=== PATIENT | male | born 1950 | race Caucasian/White ===

== ENCOUNTER 2020-08-23 12:09 | Inpatient (IN) ==
[2020-08-23] MEDS ORDERED: Ipratropium/Albuterol Neb 3 ML IH ONE (12:16)
[2020-08-23] MEDS ORDERED: methylPREDNISolone 125 MG/2 ML VIAL IVP ONE (12:16)
[2020-08-23] MEDS ORDERED: Isovue-370 500 ML BOTTLE IVP ONE (12:22)
[2020-08-23 13:04] LABS: Prothrombin Time 11.1 Seconds (9.4-12.1)
[2020-08-23] MEDS ORDERED: 0.9 % Sodium Chloride 1,000 ML IVC ONE (14:19)
[2020-08-23 14:37] LABS: Basophils % 0.3 %; Eosinophils # 0.1 K/mcL (0.0-0.6); Eosinophils % 0.9 %; Hematocrit 37.9 % (37.5-50.1); Hemoglobin 12.2 g/dL (12.9-16.9); Immature Granulocytes % 0.6 % (0-4); Lymphocytes % 14.1 %; Mean Corpuscular HGB Conc 32.2 g/dL (31.6-35.5); Mean Corpuscular Hemoglobin 31.3 pg (28.0-33.3); Mean Corpuscular Volume 97.2 fL (83.0-100.0); Mean Platelet Volume 8.9 fL (9.4-12.4); Monocytes # 0.4 K/mcL (0.0-1.3); Monocytes % 6.1 %; Neutrophils # 5.5 K/mcL (1.6-8.9); Platelet Count 197 K/mcL (140-400); Red Cell Distribution Width 12.6 % (11.5-14.5)
[2020-08-23 15:10] LABS: Alanine Aminotransferase 16 Units/L (7-52); Alkaline Phosphatase 47 Units/L (34-104); Aspartate Amino Transferase 17 Units/L (13-39); BUN/Creatinine Ratio 29 (6-26); Bilirubin,Total 0.6 mg/dL (0.3-1.0); Blood Urea Nitrogen 12 mg/dL (8-23); Carbon Dioxide 30 mEq/L (23-29); Chloride 98 mEq/L (98-107); Glucose 93 mg/dL (70-105); Magnesium 1.6 mg/dL (1.6-2.6); Osmolality,Calculated 281 (280-300); Potassium 3.8 mEq/L (3.5-5.1); Sodium 136 mEq/L (136-145); Troponin I < 0.03 ng/mL (< 0.04); eGFR For African Americans > 60 (> 60); eGFR For Non-African Americans > 60 (> 60)
[2020-08-23] MEDS ORDERED: Naloxone 0.4 MG/ML INJ IVP PRN (17:57)
[2020-08-23] MEDS: Ipratropium/Albuterol Neb 3 ML IH PRN (19:44)
[2020-08-23] MEDS ORDERED: Albuterol 2.5 MG/3 ML NEBULIZER IH PRN (21:41)
[2020-08-23] MEDS: Azithromycin 500 MG in 0.9 % Sodium Chloride 250 ML IVPB SCH (22:15)
[2020-08-23] MEDS: *HR* OxyCODONE/APAP 10/325 TABLET PO PRN (22:16)
[2020-08-23] MEDS: Benzonatate 100 MG CAPSULE PO PRN (22:16)
[2020-08-23] MEDS: ALPRAZolam 0.25 MG TABLET PO SCH (22:20)
[2020-08-23] MEDS: Ipratropium/Albuterol Neb 3 ML IH SCH (22:21)
[2020-08-23] MEDS: Budesonide/Formoterol 160/4.5 1 PUFF INH IH SCH (22:21)
[2020-08-24] MEDS: Ipratropium/Albuterol Neb 3 ML IH SCH ×6 (03:39→22:41)
[2020-08-24 07:30] LABS: Basophils % 0.2 %; Hematocrit 33.1 % (37.5-50.1); Hemoglobin 10.8 g/dL (12.9-16.9); Immature Granulocytes % 0.8 % (0-4); Lymphocytes # 0.5 K/mcL (0.6-4.6); Mean Corpuscular HGB Conc 32.6 g/dL (31.6-35.5); Mean Corpuscular Hemoglobin 32.2 pg (28.0-33.3); Mean Corpuscular Volume 98.8 fL (83.0-100.0); Mean Platelet Volume 9.1 fL (9.4-12.4); Monocytes # 0.6 K/mcL (0.0-1.3); Monocytes % 8.3 %; Neutrophils # 5.5 K/mcL (1.6-8.9); Platelet Count 181 K/mcL (140-400); Red Blood Count 3.35 M/mcL (4.19-5.50); Red Cell Distribution Width 12.7 % (11.5-14.5); Segmented Neutrophils % 83.7 %; White Blood Count 6.6 K/mcL (4.3-11.1)
[2020-08-24 07:50] LABS: BUN/Creatinine Ratio 45 (6-26); Blood Urea Nitrogen 17 mg/dL (8-23); Calcium 8.5 mg/dL (8.6-10.3); Carbon Dioxide 30 mEq/L (23-29); Chloride 102 mEq/L (98-107); Glucose 127 mg/dL (70-105); Osmolality,Calculated 283 (280-300); Potassium 4.1 mEq/L (3.5-5.1); Sodium 135 mEq/L (136-145); eGFR For African Americans > 60 (> 60); eGFR For Non-African Americans > 60 (> 60)
[2020-08-24] MEDS: Loratadine 10 MG TABLET PO SCH (07:59)
[2020-08-24] MEDS: ALPRAZolam 0.25 MG TABLET PO SCH ×2 (07:59→21:34)
[2020-08-24] MEDS: lisinopriL 20 MG TABLET PO SCH (07:59)
[2020-08-24] MEDS: MethylPREDNISolone 40 MG/ML VIAL IVP SCH ×2 (08:00→17:47)
[2020-08-24] MEDS: *HR* Acetylcysteine 20% 600 MG/3 ML ORAL SYRINGE PO SCH (08:10)
[2020-08-24] MEDS ORDERED: NON-FORMULARY MEDICATION 1 EACH EACH (Levocetirizine Dihydrochloride [Allergy Relief (Xyza PO SCH (09:00)
[2020-08-24] MEDS: Budesonide/Formoterol 160/4.5 1 PUFF INH IH SCH ×2 (10:19→22:42)
[2020-08-24 12:33] LABS: % Iron Saturation 34 % (20-55); Iron 83 mcg/dL (65-175); Transferrin 173 mg/dL (203-362)
[2020-08-24 12:51] LABS: Ferritin 191 ng/mL (20-250)
[2020-08-24] MEDS: *HR* OxyCODONE/APAP 10/325 TABLET PO PRN ×2 (14:36→21:34)
[2020-08-24] MEDS: Benzonatate 100 MG CAPSULE PO PRN (14:36)
[2020-08-24] MEDS: Ipratropium/Albuterol Neb 3 ML IH PRN (15:25)
[2020-08-24] MEDS: Azithromycin 500 MG in 0.9 % Sodium Chloride 250 ML IVPB SCH (17:47)
[2020-08-25 02:51] LABS: Basophils % 0.1 %; Hematocrit 32.8 % (37.5-50.1); Hemoglobin 10.4 g/dL (12.9-16.9); Immature Granulocytes % 0.7 % (0-4); Lymphocytes # 0.3 K/mcL (0.6-4.6); Lymphocytes % 3.2 %; Mean Corpuscular HGB Conc 31.7 g/dL (31.6-35.5); Mean Corpuscular Hemoglobin 31.7 pg (28.0-33.3); Mean Platelet Volume 9.4 fL (9.4-12.4); Monocytes # 0.2 K/mcL (0.0-1.3); Monocytes % 2.3 %; Neutrophils # 8.2 K/mcL (1.6-8.9); Platelet Count 192 K/mcL (140-400); Red Blood Count 3.28 M/mcL (4.19-5.50); Segmented Neutrophils % 93.7 %; White Blood Count 8.7 K/mcL (4.3-11.1)
[2020-08-25 03:10] LABS: BUN/Creatinine Ratio 45 (6-26); Blood Urea Nitrogen 24 mg/dL (8-23); Calcium 8.6 mg/dL (8.6-10.3); Carbon Dioxide 29 mEq/L (23-29); Chloride 101 mEq/L (98-107); Glucose 139 mg/dL (70-105); Osmolality,Calculated 284 (280-300); Sodium 134 mEq/L (136-145); eGFR For African Americans > 60 (> 60); eGFR For Non-African Americans > 60 (> 60)
[2020-08-25] MEDS: Ipratropium/Albuterol Neb 3 ML IH SCH ×4 (03:38→20:54)
[2020-08-25] MEDS: MethylPREDNISolone 40 MG/ML VIAL IVP SCH ×2 (05:29→17:02)
[2020-08-25] MEDS: Loratadine 10 MG TABLET PO SCH (07:45)
[2020-08-25] MEDS: ALPRAZolam 0.25 MG TABLET PO SCH ×2 (07:45→21:28)
[2020-08-25] MEDS: *HR* OxyCODONE/APAP 10/325 TABLET PO PRN ×3 (07:45→21:29)
[2020-08-25] MEDS: lisinopriL 20 MG TABLET PO SCH (07:46)
[2020-08-25] MEDS: *HR* Acetylcysteine 20% 600 MG/3 ML ORAL SYRINGE PO SCH (09:43)
[2020-08-25] MEDS: Budesonide/Formoterol 160/4.5 1 PUFF INH IH SCH ×2 (10:55→20:54)
[2020-08-25] MEDS ORDERED: Isovue-370 500 ML BOTTLE IVP ONE (11:10)
[2020-08-25] MEDS: Azithromycin 500 MG in 0.9 % Sodium Chloride 250 ML IVPB SCH (17:02)
[2020-08-26] MEDS: Ipratropium/Albuterol Neb 3 ML IH SCH ×4 (03:49→21:36)
[2020-08-26 04:04] LABS: Basophils % 0.1 %; Hematocrit 33.7 % (37.5-50.1); Hemoglobin 10.6 g/dL (12.9-16.9); Immature Granulocytes % 0.8 % (0-4); Lymphocytes # 0.4 K/mcL (0.6-4.6); Lymphocytes % 5.1 %; Mean Corpuscular HGB Conc 31.5 g/dL (31.6-35.5); Mean Corpuscular Hemoglobin 31.3 pg (28.0-33.3); Mean Corpuscular Volume 99.4 fL (83.0-100.0); Monocytes # 0.3 K/mcL (0.0-1.3); Monocytes % 4.1 %; Platelet Count 185 K/mcL (140-400); Red Blood Count 3.39 M/mcL (4.19-5.50); Red Cell Distribution Width 12.9 % (11.5-14.5); Segmented Neutrophils % 89.9 %; White Blood Count 7.8 K/mcL (4.3-11.1)
[2020-08-26 04:28] LABS: BUN/Creatinine Ratio 53 (6-26); Blood Urea Nitrogen 26 mg/dL (8-23); Calcium 8.4 mg/dL (8.6-10.3); Carbon Dioxide 28 mEq/L (23-29); Chloride 104 mEq/L (98-107); Glucose 119 mg/dL (70-105); Osmolality,Calculated 288 (280-300); Potassium 4.5 mEq/L (3.5-5.1); Sodium 136 mEq/L (136-145); eGFR For African Americans > 60 (> 60); eGFR For Non-African Americans > 60 (> 60)
[2020-08-26] MEDS: MethylPREDNISolone 40 MG/ML VIAL IVP SCH (05:32)
[2020-08-26] MEDS: *HR* OxyCODONE/APAP 10/325 TABLET PO PRN ×2 (09:07→16:20)
[2020-08-26] MEDS: lisinopriL 20 MG TABLET PO SCH (09:07)
[2020-08-26] MEDS: Loratadine 10 MG TABLET PO SCH (09:07)
[2020-08-26] MEDS: ALPRAZolam 0.25 MG TABLET PO SCH ×2 (09:08→20:07)
[2020-08-26] MEDS: *HR* Acetylcysteine 20% 600 MG/3 ML ORAL SYRINGE PO SCH (09:54)
[2020-08-26] MEDS: Budesonide/Formoterol 160/4.5 1 PUFF INH IH SCH ×2 (10:25→21:37)
[2020-08-26] MEDS ORDERED: Lidocaine -MPF 2% 2 ML VIAL ONE (13:20)
[2020-08-26] MEDS: Azithromycin 500 MG in 0.9 % Sodium Chloride 250 ML IVPB SCH (18:26)
[2020-08-27] MEDS: Ipratropium/Albuterol Neb 3 ML IH SCH ×4 (03:36→22:08)
[2020-08-27 04:35] LABS: Eosinophils % 0.2 %; Hematocrit 34.5 % (37.5-50.1); Hemoglobin 10.8 g/dL (12.9-16.9); Immature Granulocytes % 0.7 % (0-4); Lymphocytes % 16.2 %; Mean Corpuscular HGB Conc 31.3 g/dL (31.6-35.5); Mean Corpuscular Hemoglobin 31.3 pg (28.0-33.3); Mean Platelet Volume 9.2 fL (9.4-12.4); Monocytes # 0.4 K/mcL (0.0-1.3); Monocytes % 7.4 %; Neutrophils # 4.5 K/mcL (1.6-8.9); Platelet Count 183 K/mcL (140-400); Red Blood Count 3.45 M/mcL (4.19-5.50); Red Cell Distribution Width 12.8 % (11.5-14.5); Segmented Neutrophils % 75.5 %
[2020-08-27 04:52] LABS: BUN/Creatinine Ratio 37 (6-26); Blood Urea Nitrogen 26 mg/dL (8-23); Calcium 8.5 mg/dL (8.6-10.3); Carbon Dioxide 28 mEq/L (23-29); Chloride 104 mEq/L (98-107); Glucose 121 mg/dL (70-105); Osmolality,Calculated 290 (280-300); Potassium 3.9 mEq/L (3.5-5.1); Sodium 137 mEq/L (136-145); eGFR For African Americans > 60 (> 60); eGFR For Non-African Americans > 60 (> 60)
[2020-08-27] MEDS: Loratadine 10 MG TABLET PO SCH (08:34)
[2020-08-27] MEDS: *HR* Acetylcysteine 20% 600 MG/3 ML ORAL SYRINGE PO SCH (08:34)
[2020-08-27] MEDS: predniSONE 20 MG TABLET PO SCH (08:35)
[2020-08-27] MEDS: ALPRAZolam 0.25 MG TABLET PO SCH ×2 (08:36→20:09)
[2020-08-27] MEDS: lisinopriL 20 MG TABLET PO SCH (08:36)
[2020-08-27] MEDS: *HR* OxyCODONE/APAP 10/325 TABLET PO PRN ×2 (09:07→20:12)
[2020-08-27] MEDS: Budesonide/Formoterol 160/4.5 1 PUFF INH IH SCH ×2 (09:45→22:08)
[2020-08-27] MEDS: Azithromycin 500 MG in 0.9 % Sodium Chloride 250 ML IVPB SCH (17:40)
[2020-08-28] MEDS: Ipratropium/Albuterol Neb 3 ML IH SCH ×4 (03:57→22:42)
[2020-08-28] MEDS: *HR* Acetylcysteine 20% 600 MG/3 ML ORAL SYRINGE PO SCH (07:33)
[2020-08-28] MEDS: Loratadine 10 MG TABLET PO SCH (07:34)
[2020-08-28] MEDS: predniSONE 20 MG TABLET PO SCH (07:36)
[2020-08-28] MEDS: ALPRAZolam 0.25 MG TABLET PO SCH (07:37)
[2020-08-28] MEDS: lisinopriL 20 MG TABLET PO SCH (07:37)
[2020-08-28] MEDS: *HR* OxyCODONE/APAP 10/325 TABLET PO PRN (08:03)
[2020-08-28] MEDS ORDERED: *HR* LORazepam 2 MG/ML VIAL IVP PRN ×3 (08:45)
[2020-08-28] MEDS: Budesonide/Formoterol 160/4.5 1 PUFF INH IH SCH ×2 (09:37→22:42)
[2020-08-28] MEDS: Folic Acid 1 MG TABLET PO SCH (10:47)
[2020-08-28] MEDS: Thiamine (B-1) 100 MG TABLET PO SCH (10:47)
[2020-08-28 11:05] LABS: Folate 7.4 ng/mL (3.0-16.0)
[2020-08-28] MEDS ORDERED: E-Z-HD (BARIUM SULF) SUSPENSION PO ONE (13:06)
[2020-08-28] MEDS ORDERED: Barium Sulfate 1 TAB TABLET PO ONE (13:06)
[2020-08-28] MEDS ORDERED: E-Z-PAQUE (BARIUM SULF) SUSP 1 BOTTLE PO ONE (13:06)
[2020-08-29 02:56] LABS: Mean Corpuscular HGB Conc 32.4 g/dL (31.6-35.5); Mean Corpuscular Hemoglobin 31.7 pg (28.0-33.3); Mean Platelet Volume 8.9 fL (9.4-12.4); Platelet Count 191 K/mcL (140-400); Red Blood Count 3.47 M/mcL (4.19-5.50); Red Cell Distribution Width 12.8 % (11.5-14.5)
[2020-08-29 03:15] LABS: BUN/Creatinine Ratio 66 (6-26); Blood Urea Nitrogen 27 mg/dL (8-23); Carbon Dioxide 32 mEq/L (23-29); Chloride 104 mEq/L (98-107); Glucose 124 mg/dL (70-105); Potassium 4.1 mEq/L (3.5-5.1); Sodium 138 mEq/L (136-145); eGFR For African Americans > 60 (> 60); eGFR For Non-African Americans > 60 (> 60)
[2020-08-29 03:16] LABS: Calcium 8.5 mg/dL (8.6-10.3); Osmolality,Calculated 293 (280-300)
[2020-08-29] MEDS: Ipratropium/Albuterol Neb 3 ML IH SCH ×2 (03:37→09:53)
[2020-08-29 03:51] VITALS: BP 128/72
[2020-08-29] MEDS: Loratadine 10 MG TABLET PO SCH (07:56)
[2020-08-29] MEDS: Thiamine (B-1) 100 MG TABLET PO SCH (07:56)
[2020-08-29] MEDS: Folic Acid 1 MG TABLET PO SCH (07:56)
[2020-08-29] MEDS: lisinopriL 20 MG TABLET PO SCH (07:57)
[2020-08-29] MEDS: *HR* OxyCODONE/APAP 10/325 TABLET PO PRN (08:02)
[2020-08-29] MEDS ORDERED: predniSONE 20 MG TABLET PO SCH (09:00)
[2020-08-29] MEDS: Budesonide/Formoterol 160/4.5 1 PUFF INH IH SCH (09:53)
== END 2020-08-29 11:03 | disposition home health service (06) | DRG 190 ==
LOC: EMEROOARM 12:09 → 3BNU 12:09
PROVIDERS: ADMIT Student in an Organized Health Care Education/Training Program; ATTEND Student in an Organized Health Care Education/Training Program
PROC: ENDOEBX (2020-08-26 13:55)

== ENCOUNTER 2021-11-28 10:19 | Inpatient (IN) ==
[2021-11-28] MEDS ORDERED: Ipratropium/Albuterol Neb 3 ML IH ONE (10:43)
[2021-11-28] MEDS ORDERED: methylPREDNISolone 125 MG/2 ML VIAL IVP ONE (10:43)
[2021-11-28] MEDS ORDERED: 0.9 % Sodium Chloride 500 ML IVC ONE ×2 (10:49→22:42)
[2021-11-28 11:16] LABS: Basophils # 0.1 K/mcL (0.0-0.2); Basophils % 0.8 %; Eosinophils # 0.2 K/mcL (0.0-0.6); Eosinophils % 2.7 %; Hematocrit 37.6 % (37.5-50.1); Hemoglobin 12.4 g/dL (12.9-16.9); Immature Granulocytes % 1.1 % (0-4); Lymphocytes # 1.3 K/mcL (0.6-4.6); Lymphocytes % 20.6 %; Mean Corpuscular Hemoglobin 31.2 pg (28.0-33.3); Mean Corpuscular Volume 94.5 fL (83.0-100.0); Mean Platelet Volume 8.1 fL (9.4-12.4); Monocytes # 0.6 K/mcL (0.0-1.3); Monocytes % 9.3 %; Neutrophils # 4.1 K/mcL (1.6-8.9); Platelet Count 344 K/mcL (140-400); Red Blood Count 3.98 M/mcL (4.19-5.50); Red Cell Distribution Width 11.9 % (11.5-14.5); Segmented Neutrophils % 65.5 %; White Blood Count 6.3 K/mcL (4.3-11.1)
[2021-11-28 11:38] LABS: BUN/Creatinine Ratio 19 (6-26); Blood Urea Nitrogen 18 mg/dL (8-23); Calcium 9.2 mg/dL (8.6-10.3); Carbon Dioxide 28 mEq/L (23-29); Chloride 92 mEq/L (98-107); Glucose 96 mg/dL (70-105); Osmolality,Calculated 270 (280-300); Potassium 4.8 mEq/L (3.5-5.1); Sodium 129 mEq/L (136-145); eGFR For African Americans > 60 (> 60); eGFR For Non-African Americans > 60 (> 60)
[2021-11-28 11:45] LABS: Troponin I 0.15 ng/mL (< 0.04)
[2021-11-28] MEDS ORDERED: Naloxone 0.4 MG/ML INJ IVP PRN (13:14)
[2021-11-28] MEDS ORDERED: Perflutren Lipid Microsphere 1.3 ML in 0.9 % Sodium Chloride 8.7 ML IVP PRN (13:17)
[2021-11-28] MEDS ORDERED: Aspirin 325 MG TABLET PO ONE (13:18)
[2021-11-28 13:42] LABS: Cholesterol 139 mg/dL (< 200); HDL Cholesterol 46 mg/dL (40-59); LDL Cholesterol,Calculated 72 mg/dL (< 100); Triglycerides 107 mg/dL (< 150)
[2021-11-28 13:52] LABS: Estimated Average Glucose 100 mg/dl; Hemoglobin A1C 5.1 %
[2021-11-28 14:18] LABS: Bilirubin,Urine Negative (Negative); Blood,Urine Negative (Negative); Clarity,Urine Clear (Clear); Color,Urine Yellow (Yellow); Glucose,Urine (UA) Normal (Normal); Ketones,Urine 10 mg/dL (Negative); Leukocyte Esterase,Urine Negative (Negative); Nitrite,Urine Negative (Negative); PH,Urine 6.5 pH Units (5.0-8.0); Protein,Urine Trace mg/dL (Neg-Trace); Specific Gravity,Urine 1.019 (1.010-1.025)
[2021-11-28 14:36] LABS: Alanine Aminotransferase 14 Units/L (7-52); Albumin 3.7 g/dL (3.5-5.7); Albumin/Globulin Ratio 1.5 (1.1-2.2); Alkaline Phosphatase 54 Units/L (34-104); Aspartate Amino Transferase 27 Units/L (13-39); Bilirubin,Direct 0.1 mg/dL (0.0-0.2); Bilirubin,Indirect 0.4 mg/dL (0.0-1.0); Bilirubin,Total 0.5 mg/dL (0.3-1.0); Globulin 2.4 g/dL (2.4-3.5); Total Protein 6.1 g/dL (6.4-8.9)
[2021-11-28] MEDS: Benzonatate 100 MG CAPSULE PO SCH ×2 (15:24→20:12)
[2021-11-28] MEDS: Ipratropium/Albuterol Neb 3 ML IH PRN ×2 (15:25→19:54)
[2021-11-28 16:39] LABS: Adenovirus Not Detected (Not Detect); Bordetella Pertussis Not Detected (Not Detect); Chlamydophila pneumoniae Not Detected (Not Detect); Coronavirus 229E Not Detected (Not Detect); Coronavirus HKU1 Not Detected (Not Detect); Coronavirus NL63 Not Detected (Not Detect); Coronavirus OC43 Not Detected (Not Detect); Human Metapneumovirus Not Detected (Not Detect); Human Rhinovirus/Enterovirus Not Detected (Not Detect); Influenza A Subtype 2009 H1 Not Detected (Not Detect); Influenza B Not Detected (Not Detect); Mycoplasma pneumoniae Not Detected (Not Detect); Parainfluenza Virus 1 Not Detected (Not Detect); Parainfluenza Virus 2 Not Detected (Not Detect); Parainfluenza Virus 3 Not Detected (Not Detect); Parainfluenza Virus 4 Not Detected (Not Detect); Respiratory Syncytial Virus Not Detected (Not Detect); SARS-CoV-2 Not Detected (Not Detect)
[2021-11-28 17:20] LABS: BUN/Creatinine Ratio 23 (6-26); Blood Urea Nitrogen 22 mg/dL (8-23); Calcium 8.5 mg/dL (8.6-10.3); Carbon Dioxide 26 mEq/L (23-29); Chloride 94 mEq/L (98-107); Glucose 186 mg/dL (70-105); Osmolality,Calculated 272 (280-300); Potassium 4.7 mEq/L (3.5-5.1); Sodium 127 mEq/L (136-145); Thyroid Stimulating Hormone 0.132 mcIU/mL (0.340-5.600); Troponin I 0.11 ng/mL (< 0.04); eGFR For African Americans > 60 (> 60); eGFR For Non-African Americans > 60 (> 60)
[2021-11-28 17:25] LABS: Ferritin 282 ng/mL (20-250)
[2021-11-28 17:27] LABS: Folate 9.5 ng/mL (3.0-16.0)
[2021-11-28] MEDS: *HR* Heparin 5,000 UNIT/ML VIAL SQ SCH (17:37)
[2021-11-28] MEDS: Budesonide/Formoterol 160/4.5 1 PUFF INH IH SCH (19:54)
[2021-11-28] MEDS ORDERED: Albumin 25% 25gram/100mL 25 GM/100 ML IV.SOLN IVPB ONE (20:21)
[2021-11-29 01:32] LABS: BUN/Creatinine Ratio 31 (6-26); Blood Urea Nitrogen 28 mg/dL (8-23); Calcium 8.2 mg/dL (8.6-10.3); Carbon Dioxide 25 mEq/L (23-29); Chloride 97 mEq/L (98-107); Glucose 189 mg/dL (70-105); Osmolality,Calculated 277 (280-300); Potassium 4.4 mEq/L (3.5-5.1); Sodium 128 mEq/L (136-145); eGFR For African Americans > 60 (> 60); eGFR For Non-African Americans > 60 (> 60)
[2021-11-29 01:54] LABS: Alanine Aminotransferase 12 Units/L (7-52); Albumin 3.5 g/dL (3.5-5.7); Albumin/Globulin Ratio 2.1 (1.1-2.2); Alkaline Phosphatase 41 Units/L (34-104); Aspartate Amino Transferase 19 Units/L (13-39); Bilirubin,Total 0.3 mg/dL (0.3-1.0); Globulin 1.7 g/dL (2.4-3.5); Magnesium 1.6 mg/dL (1.6-2.6); Phosphorous 2.2 mg/dL (2.7-4.5); Total Protein 5.2 g/dL (6.4-8.9)
[2021-11-29] MEDS: Ipratropium/Albuterol Neb 3 ML IH PRN (03:58)
[2021-11-29] MEDS: *HR* OxyCODONE/APAP 10/325 TABLET PO PRN ×2 (04:55→14:42)
[2021-11-29] MEDS: *HR* Heparin 5,000 UNIT/ML VIAL SQ SCH ×2 (04:56→17:29)
[2021-11-29] MEDS: Tiotropium 10 INH DOSE IH SCH (07:39)
[2021-11-29] MEDS: Budesonide/Formoterol 160/4.5 1 PUFF INH IH SCH ×2 (07:39→19:43)
[2021-11-29] MEDS ORDERED: NON-FORMULARY MEDICATION 1 EACH EACH (Amlodipine Besylate 10 MG Tablet) PO SCH (09:00)
[2021-11-29] MEDS: lisinopriL 20 MG TABLET PO SCH (09:50)
[2021-11-29] MEDS: Benzonatate 100 MG CAPSULE PO SCH ×3 (09:50→19:46)
[2021-11-29] MEDS: Aspirin 81 MG TAB.CHEW PO SCH (09:50)
[2021-11-29] MEDS: amLODIPine 5 MG TABLET PO SCH (09:50)
[2021-11-29] MEDS: Gabapentin 300 MG CAPSULE PO SCH (09:51)
[2021-11-29] MEDS: Nicotine 21 MG PATCH.TD24 TD SCH (10:30)
[2021-11-29] MEDS: Fluticasone Propionate Nasal 50 MCG/SPRAY BOTTLE NS SCH (10:31)
[2021-11-29] MEDS: Ipratropium/Albuterol Neb 3 ML IH SCH ×4 (11:16→23:12)
[2021-11-29] MEDS: predniSONE 20 MG TABLET PO SCH (13:02)
[2021-11-30] MEDS ORDERED: Albumin 25% 25gram/100mL 25 GM/100 ML IV.SOLN IVPB ONE (01:27)
[2021-11-30] MEDS: Ipratropium/Albuterol Neb 3 ML IH SCH ×6 (04:04→23:27)
[2021-11-30] MEDS: *HR* Heparin 5,000 UNIT/ML VIAL SQ SCH (05:54)
[2021-11-30 05:56] LABS: Hematocrit 28.6 % (37.5-50.1); Mean Corpuscular HGB Conc 32.5 g/dL (31.6-35.5); Mean Corpuscular Hemoglobin 30.9 pg (28.0-33.3); Mean Platelet Volume 8.5 fL (9.4-12.4); Platelet Count 280 K/mcL (140-400); Red Blood Count 3.01 M/mcL (4.19-5.50); Red Cell Distribution Width 12.2 % (11.5-14.5); White Blood Count 6.1 K/mcL (4.3-11.1)
[2021-11-30 05:57] LABS: Hemoglobin 9.3 g/dL (12.9-16.9)
[2021-11-30 06:06] LABS: Alanine Aminotransferase 11 Units/L (7-52); Albumin 3.9 g/dL (3.5-5.7); Albumin/Globulin Ratio 2.4 (1.1-2.2); Alkaline Phosphatase 37 Units/L (34-104); Aspartate Amino Transferase 16 Units/L (13-39); BUN/Creatinine Ratio 40 (6-26); Bilirubin,Total 0.2 mg/dL (0.3-1.0); Blood Urea Nitrogen 32 mg/dL (8-23); Calcium 8.5 mg/dL (8.6-10.3); Carbon Dioxide 27 mEq/L (23-29); Chloride 98 mEq/L (98-107); Globulin 1.6 g/dL (2.4-3.5); Glucose 110 mg/dL (70-105); Osmolality,Calculated 282 (280-300); Potassium 4.6 mEq/L (3.5-5.1); Sodium 132 mEq/L (136-145); Total Protein 5.5 g/dL (6.4-8.9); eGFR For African Americans > 60 (> 60); eGFR For Non-African Americans > 60 (> 60)
[2021-11-30] MEDS ORDERED: Regadenoson 0.4 MG/5 ML SYRINGE IVP ONE (07:15)
[2021-11-30] MEDS: Budesonide/Formoterol 160/4.5 1 PUFF INH IH SCH ×2 (07:59→20:26)
[2021-11-30] MEDS: Tiotropium 10 INH DOSE IH SCH (08:05)
[2021-11-30 08:18] LABS: Hematocrit 27.6 % (37.5-50.1); Hemoglobin 9.4 g/dL (12.9-16.9)
[2021-11-30] MEDS: lisinopriL 20 MG TABLET PO SCH (09:16)
[2021-11-30] MEDS: Aspirin 81 MG TAB.CHEW PO SCH (09:16)
[2021-11-30] MEDS: Gabapentin 300 MG CAPSULE PO SCH (09:16)
[2021-11-30] MEDS: predniSONE 20 MG TABLET PO SCH (09:17)
[2021-11-30] MEDS: Benzonatate 100 MG CAPSULE PO SCH ×3 (09:17→21:26)
[2021-11-30] MEDS: amLODIPine 5 MG TABLET PO SCH (09:17)
[2021-11-30] MEDS: Fluticasone Propionate Nasal 50 MCG/SPRAY BOTTLE NS SCH (12:21)
[2021-11-30 14:54] LABS: % Iron Saturation 53 % (20-55); Iron 115 mcg/dL (65-175); Transferrin 156 mg/dL (203-362)
[2021-11-30] MEDS: Nicotine 21 MG PATCH.TD24 TD SCH (15:10)
[2021-11-30] MEDS ORDERED: 0.9 % Sodium Chloride 500 ML IVC ONE (16:53)
[2021-11-30] MEDS: Pantoprazole 40 MG VIAL IVP SCH (17:00)
[2021-12-01 00:38] LABS: Hematocrit 28.6 % (37.5-50.1); Hemoglobin 9.2 g/dL (12.9-16.9); Mean Corpuscular HGB Conc 32.2 g/dL (31.6-35.5); Mean Corpuscular Hemoglobin 30.8 pg (28.0-33.3); Mean Corpuscular Volume 95.7 fL (83.0-100.0); Mean Platelet Volume 8.3 fL (9.4-12.4); Platelet Count 295 K/mcL (140-400); Red Blood Count 2.99 M/mcL (4.19-5.50); Red Cell Distribution Width 12.4 % (11.5-14.5); White Blood Count 6.9 K/mcL (4.3-11.1)
[2021-12-01 00:56] LABS: BUN/Creatinine Ratio 47 (6-26); Blood Urea Nitrogen 37 mg/dL (8-23); Calcium 8.3 mg/dL (8.6-10.3); Carbon Dioxide 28 mEq/L (23-29); Chloride 102 mEq/L (98-107); Glucose 109 mg/dL (70-105); Osmolality,Calculated 287 (280-300); Potassium 4.5 mEq/L (3.5-5.1); Sodium 134 mEq/L (136-145); eGFR For African Americans > 60 (> 60); eGFR For Non-African Americans > 60 (> 60)
[2021-12-01] MEDS ORDERED: Albumin 25% 25gram/100mL 25 GM/100 ML IV.SOLN IVPB ONE (01:00)
[2021-12-01] MEDS: Ipratropium/Albuterol Neb 3 ML IH SCH ×6 (03:47→23:03)
[2021-12-01] MEDS: Pantoprazole 40 MG VIAL IVP SCH (05:15)
[2021-12-01] MEDS: Tiotropium 10 INH DOSE IH SCH (07:55)
[2021-12-01] MEDS: Budesonide/Formoterol 160/4.5 1 PUFF INH IH SCH ×2 (07:55→19:41)
[2021-12-01] MEDS: predniSONE 20 MG TABLET PO SCH (08:07)
[2021-12-01] MEDS: Aspirin 81 MG TAB.CHEW PO SCH (08:07)
[2021-12-01] MEDS: Fluticasone Propionate Nasal 50 MCG/SPRAY BOTTLE NS SCH ×2 (08:08→20:00)
[2021-12-01] MEDS: Benzonatate 100 MG CAPSULE PO SCH (08:08)
[2021-12-01] MEDS: Gabapentin 300 MG CAPSULE PO SCH (08:08)
[2021-12-01] MEDS: Nicotine 21 MG PATCH.TD24 TD SCH (08:09)
[2021-12-01] MEDS: *HR* OxyCODONE/APAP 10/325 TABLET PO PRN ×2 (12:05→20:05)
[2021-12-01] MEDS ORDERED: Benzonatate 100 MG CAPSULE PO PRN (13:29)
[2021-12-01 14:32] LABS: Hematocrit 29.5 % (37.5-50.1); Hemoglobin 9.9 g/dL (12.9-16.9)
[2021-12-01] MEDS: Pantoprazole 40 MG in 0.9 % Sodium Chloride Mini Bag 100 ML IVC SCH ×2 (15:56→20:05)
[2021-12-02] MEDS: Pantoprazole 40 MG in 0.9 % Sodium Chloride Mini Bag 100 ML IVC SCH ×4 (01:22→18:30)
[2021-12-02 01:47] LABS: Basophils % 0.2 %; Hematocrit 29.1 % (37.5-50.1); Hemoglobin 9.2 g/dL (12.9-16.9); Immature Granulocytes % 0.5 % (0-4); Lymphocytes # 0.8 K/mcL (0.6-4.6); Lymphocytes % 13.7 %; Mean Corpuscular HGB Conc 31.6 g/dL (31.6-35.5); Mean Corpuscular Hemoglobin 31.3 pg (28.0-33.3); Mean Platelet Volume 8.7 fL (9.4-12.4); Monocytes # 0.4 K/mcL (0.0-1.3); Monocytes % 7.6 %; Neutrophils # 4.5 K/mcL (1.6-8.9); Platelet Count 285 K/mcL (140-400); Red Blood Count 2.94 M/mcL (4.19-5.50); Red Cell Distribution Width 12.7 % (11.5-14.5); White Blood Count 5.8 K/mcL (4.3-11.1)
[2021-12-02 02:29] LABS: BUN/Creatinine Ratio 40 (6-26); Blood Urea Nitrogen 19 mg/dL (8-23); Calcium 7.9 mg/dL (8.6-10.3); Carbon Dioxide 23 mEq/L (23-29); Chloride 116 mEq/L (98-107); Glucose 89 mg/dL (70-105); Osmolality,Calculated 302 (280-300); Potassium 3.7 mEq/L (3.5-5.1); Sodium 145 mEq/L (136-145); eGFR For African Americans > 60 (> 60); eGFR For Non-African Americans > 60 (> 60)
[2021-12-02] MEDS: Ipratropium/Albuterol Neb 3 ML IH SCH ×6 (03:46→23:41)
[2021-12-02] MEDS ORDERED: Acetaminophen IV 500 MG/50 ML BAG IVPB ONE (05:40)
[2021-12-02] MEDS: Budesonide/Formoterol 160/4.5 1 PUFF INH IH SCH ×2 (07:25→19:55)
[2021-12-02] MEDS: Gabapentin 300 MG CAPSULE PO SCH (09:41)
[2021-12-02] MEDS: Nicotine 21 MG PATCH.TD24 TD SCH (09:41)
[2021-12-02] MEDS: predniSONE 20 MG TABLET PO SCH (09:41)
[2021-12-02] MEDS: Aspirin 81 MG TAB.CHEW PO SCH (09:41)
[2021-12-02] MEDS: Fluticasone Propionate Nasal 50 MCG/SPRAY BOTTLE NS SCH ×2 (09:42→19:54)
[2021-12-02] MEDS ORDERED: *HR* Propofol 500 MG/50 ML BOTTLE IVP ONE (11:52)
[2021-12-02] MEDS ORDERED: Lidocaine -MPF 2% 5 ML VIAL SQ ONE (11:52)
[2021-12-02] MEDS: *HR* OxyCODONE/APAP 10/325 TABLET PO PRN (19:53)
[2021-12-02] MEDS: Albuterol 2.5 MG/3 ML NEBULIZER IH PRN (21:22)
[2021-12-03] MEDS: Pantoprazole 40 MG in 0.9 % Sodium Chloride Mini Bag 100 ML IVC SCH ×6 (00:07→21:37)
[2021-12-03 03:02] LABS: Eosinophils % 0.3 %; Hematocrit 28.1 % (37.5-50.1); Hemoglobin 9.2 g/dL (12.9-16.9); Immature Granulocytes % 0.5 % (0-4); Lymphocytes # 1.1 K/mcL (0.6-4.6); Lymphocytes % 9.1 %; Mean Corpuscular HGB Conc 32.7 g/dL (31.6-35.5); Mean Corpuscular Hemoglobin 32.3 pg (28.0-33.3); Mean Corpuscular Volume 98.6 fL (83.0-100.0); Mean Platelet Volume 8.5 fL (9.4-12.4); Monocytes # 0.6 K/mcL (0.0-1.3); Monocytes % 5.5 %; Neutrophils # 9.8 K/mcL (1.6-8.9); Platelet Count 296 K/mcL (140-400); Red Blood Count 2.85 M/mcL (4.19-5.50); Red Cell Distribution Width 12.9 % (11.5-14.5); Segmented Neutrophils % 84.6 %
[2021-12-03 03:04] LABS: White Blood Count 11.6 K/mcL (4.3-11.1)
[2021-12-03 03:24] LABS: BUN/Creatinine Ratio 40 (6-26); Blood Urea Nitrogen 21 mg/dL (8-23); Calcium 8.1 mg/dL (8.6-10.3); Carbon Dioxide 28 mEq/L (23-29); Chloride 108 mEq/L (98-107); Glucose 99 mg/dL (70-105); Osmolality,Calculated 295 (280-300); Potassium 3.8 mEq/L (3.5-5.1); Sodium 141 mEq/L (136-145); eGFR For African Americans > 60 (> 60); eGFR For Non-African Americans > 60 (> 60)
[2021-12-03] MEDS: Ipratropium/Albuterol Neb 3 ML IH SCH ×6 (03:53→23:39)
[2021-12-03] MEDS: Nicotine 21 MG PATCH.TD24 TD SCH (04:53)
[2021-12-03] MEDS: Budesonide/Formoterol 160/4.5 1 PUFF INH IH SCH ×2 (07:30→20:09)
[2021-12-03] MEDS ORDERED: Chloraseptic Spray 177 ML BOTTLE MM PRN (08:38)
[2021-12-03] MEDS: Gabapentin 300 MG CAPSULE PO SCH (08:41)
[2021-12-03] MEDS: Aspirin 81 MG TAB.CHEW PO SCH (08:41)
[2021-12-03] MEDS: Fluticasone Propionate Nasal 50 MCG/SPRAY BOTTLE NS SCH (08:42)
[2021-12-03] MEDS: predniSONE 20 MG TABLET PO SCH (08:43)
[2021-12-03] MEDS ORDERED: Simethicone/Sodium Bic/Citr Ac 1 EACH GRAN.EF.PK PO ONE (09:56)
[2021-12-03] MEDS ORDERED: E-Z-HD (BARIUM SULF) SUSPENSION PO ONE ×2 (09:56→12:38)
[2021-12-03] MEDS ORDERED: E-Z-PAQUE (BARIUM SULF) SUSP 1 BOTTLE PO ONE ×2 (09:56→12:38)
[2021-12-03] MEDS: *HR* OxyCODONE/APAP 10/325 TABLET PO PRN ×2 (11:15→21:21)
[2021-12-04 03:26] LABS: Basophils % 0.1 %; Eosinophils # 0.1 K/mcL (0.0-0.6); Eosinophils % 0.6 %; Hematocrit 28.7 % (37.5-50.1); Hemoglobin 9.3 g/dL (12.9-16.9); Immature Granulocytes % 0.3 % (0-4); Lymphocytes # 1.1 K/mcL (0.6-4.6); Lymphocytes % 11.9 %; Mean Corpuscular HGB Conc 32.4 g/dL (31.6-35.5); Mean Corpuscular Hemoglobin 31.6 pg (28.0-33.3); Mean Corpuscular Volume 97.6 fL (83.0-100.0); Mean Platelet Volume 8.5 fL (9.4-12.4); Monocytes # 0.6 K/mcL (0.0-1.3); Monocytes % 6.6 %; Neutrophils # 7.3 K/mcL (1.6-8.9); Platelet Count 292 K/mcL (140-400); Red Blood Count 2.94 M/mcL (4.19-5.50); Red Cell Distribution Width 12.5 % (11.5-14.5); Segmented Neutrophils % 80.5 %; White Blood Count 9.1 K/mcL (4.3-11.1)
[2021-12-04] MEDS: Ipratropium/Albuterol Neb 3 ML IH SCH ×3 (03:49→11:11)
[2021-12-04 03:54] LABS: BUN/Creatinine Ratio 34 (6-26); Blood Urea Nitrogen 16 mg/dL (8-23); Calcium 8.1 mg/dL (8.6-10.3); Carbon Dioxide 31 mEq/L (23-29); Chloride 103 mEq/L (98-107); Glucose 99 mg/dL (70-105); Magnesium 1.2 mg/dL (1.6-2.6); Osmolality,Calculated 287 (280-300); Phosphorous 2.1 mg/dL (2.7-4.5); Potassium 3.6 mEq/L (3.5-5.1); Sodium 138 mEq/L (136-145); eGFR For African Americans > 60 (> 60); eGFR For Non-African Americans > 60 (> 60)
[2021-12-04] MEDS: Pantoprazole 40 MG in 0.9 % Sodium Chloride Mini Bag 100 ML IVC SCH ×2 (04:01→09:42)
[2021-12-04] MEDS: Nicotine 21 MG PATCH.TD24 TD SCH (07:03)
[2021-12-04 07:38] VITALS: BP 141/77; PULSE 101; TEMP 97.6
[2021-12-04] MEDS: Budesonide/Formoterol 160/4.5 1 PUFF INH IH SCH (07:40)
[2021-12-04] MEDS: Fluticasone Propionate Nasal 50 MCG/SPRAY BOTTLE NS SCH (09:02)
[2021-12-04] MEDS: Gabapentin 300 MG CAPSULE PO SCH (09:02)
[2021-12-04] MEDS: Aspirin 81 MG TAB.CHEW PO SCH (09:02)
[2021-12-04] MEDS: Albuterol 2.5 MG/3 ML NEBULIZER IH PRN (10:09)
[2021-12-04 11:25] VITALS: O2SAT 100
== END 2021-12-04 11:53 | disposition home health service (06) | DRG 280 ==
LOC: EMEROOARM 10:19 → 2ANU 10:19 → SUATTDRO 12:32 → 2ANU 14:14
PROVIDERS: ADMIT Student in an Organized Health Care Education/Training Program; ATTEND Family Medicine
PROC: ENDOEBX (2021-12-02 13:00)